=== PATIENT | female | born 1970 | race African-American/Black ===

== ENCOUNTER 2017-11-22 10:23 | Emergency (ER) | payer MEDICARE, MEDICAID ==
[~2017-11-22] VITALS: Ht 167.6 cm; Wt 70.0 kg
[2017-11-22] MEDS ORDERED: ONDANSETRON 4MG ODT PO ONE (13:15)
[2017-11-22 14:18] LABS: CLARITY URINE CLEAR (CLEAR); COLOR URINE YELLOW (YELLOW); KETONES URINE NEGATIVE (NEGATIVE); LEUKOCYTE ESTERASE URINE NEGATIVE (NEGATIVE); NITRITE URINE NEGATIVE (NEGATIVE); OCCULT BLOOD URINE NEGATIVE (NEGATIVE); PH URINE 6.5 (4.5-8.0); PROTEIN URINE NEGATIVE (NEGATIVE); SPECIFIC GRAVITY URINE 1.019 (1.005-1.030); UROBILINOGEN URINE 0.2 E.U./dL (0.2-1.0)
[2017-11-22 14:35] LABS: BASOPHILS % 0.7 % (0.0-2.0); EOSINOPHILS % 3.5 % (0.0-5.0); HEMATOCRIT. 39.3 % (36.0-48.0); HEMOGLOBIN. 12.6 g/dL (12.0-16.0); LYMPHOCYTES % 37.8 % (20.0-50.0); MEAN CORPUSCULAR HEMOGLOBIN 23.3 pg (28.0-32.0); MEAN CORPUSCULAR VOLUME 73.1 fL (81.0-99.0); MEAN PLATELET VOLUME 8.3 fl (7.4-10.4); MONOCYTES % 14.9 % (2.0-8.0); NEUTROPHILS % 43.1 % (40.0-76.0); PLATELET 198 x1000/uL (130-400); RED BLOOD CELL COUNT 5.38 mill/uL (4.2-5.4)
[2017-11-22 14:41] LABS: PROTHROMBIN TIME 10.5 sec (9.4-11.6)
[2017-11-22] MEDS ORDERED: ACETAMINOPHEN 325MG TABLET PO ONE (14:45)
[2017-11-22 14:49] LABS: CARBON DIOXIDE 25 mEq/L (21-32); CHLORIDE 107 mEq/L (98-107)
[2017-11-22 15:21] LABS: HCG SCREEN NEGATIVE
[2017-11-22 16:21] VITALS: BP 124/79
== END 2017-11-22 16:49 | disposition home or self-care (01) ==
LOC: ER 10:58
DX: R10.2 Pelvic and perineal pain (principal)
CPT/HCPCS: 36415; 76830; 76856; 80053; 81003; 83690; 84703; 85025; 85610; 99285; Q0162

== ENCOUNTER 2018-12-25 14:16 | Emergency (ER) | payer MEDICARE, MEDICAID ==
[~2018-12-25] VITALS: Ht 167.6 cm; Wt 80.2 kg
[2018-12-25] MEDS: IBUPROFEN 800MG TABLET PO ONE (20:57)
[2018-12-25 21:37] VITALS: BP 139/76
== END 2018-12-25 21:58 | disposition home or self-care (01) ==
LOC: ER 14:35
DX: M79.641 Pain in right hand (principal); M25.571 Pain in right ankle and joints of right foot
CPT/HCPCS: 99282